=== PATIENT | male | born 1955 | race Caucasian/White ===

== ENCOUNTER 2020-01-08 07:54 | Day surgery (SDC) | payer BC ==
[~2020-01-08 07:54] MED LIST: Acetaminophen TAB* 325 MG PO PRN; Buffered Lidocaine 1% SYRIN* 1 ML/SYRINGE INTRADERM ONE
[2020-01-08] MEDS ORDERED: Midazolam* 1 MG/ML 5 ML VIAL (5 MG) ONE (09:05)
[2020-01-08] MEDS ORDERED: Neomycin/Polymy/Dex OPTH.SUSP* MAXITROL 0.1% 5 ML ONE (09:59)
[2020-01-08] MEDS ORDERED: Povidone Iodine 5% OPTH* 30 ML BTL ONE (09:59)
[2020-01-08] MEDS ORDERED: Cyclopentolate 1% OPTH.SOL* 2 ML BTL ONE (09:59)
[2020-01-08] MEDS ORDERED: Ketorolac 0.5% OPHTH (NF) 0.5 % 5 ML BTL ONE (09:59)
[2020-01-08] MEDS ORDERED: Proparacaine 0.5% OPHTH.SOL* 15 ML BTL ONE (09:59)
[2020-01-08] MEDS ORDERED: Lidocaine 1% MPF ** 5 ML VIAL ONE (09:59)
[2020-01-08] MEDS ORDERED: Phenylephrine OPHTH SOL 2.5%* 2 ML ONE (09:59)
[2020-01-08] MEDS ORDERED: acetaZOLAMIDE TAB* 250 MG ONE (09:59)
[2020-01-08] MEDS ORDERED: Lidocaine 2% w/ EPI 1:200,000* 20 ML SDV VIAL ONE (09:59)
[2020-01-08 10:24] VITALS: BP 117/70
--- NOTE | 2020-01-08 16:51 | OP ---
DATE OF OPERATION: 01/08/2020 [facility] DATE OF : 1955. SURGEON: Jake Lopez M.D. PREOPERATIVE DIAGNOSIS: Cataract right eye. POSTOPERATIVE DIAGNOSIS: Cataract right eye. OPERATIVE PROCEDURE: Extracapsular cataract extraction with intraocular lens implant right eye. DESCRIPTION OF PROCEDURE: The patient was brought to the operating room after being given 1/2% Alcaine with epinephrine drops in the preoperative area. The eye was prepped and draped in the usual sterile fashion. Sterile drape and eyelid speculum were placed. Again, topical 1/2% Alcaine with epinephrine was given. A paracentesis incision was made at the 9 o'clock position with the No.75 blade. Clear cornea incision 2.2 x 2.2-mm was created at the 12 o'clock position starting at the anterior limbus using the 2.2-mm keratome. The anterior chamber was irrigated with 0.4 mL of 1% non-preservative intracameral lidocaine and filled with DisCoVisc. A capsulorrhexis was completed using the cystotome and the Utrata forceps. Hydrodissection was performed with balanced salt solution. The lens nucleus was removed with the Phacoemulsification handpiece without incident. Cortex was removed with the irrigation-aspiration handpiece. The capsular bag was re-inflated using DisCoVisc and an [id number] implant was inserted with the shooter. The irrigation-aspiration handpiece was used to remove all residual DisCoVisc. The eye was refilled with balanced salt solution and the wound checked and found to be watertight. Topical Maxitrol drops were given. Of note, the patient had very dense cataract and had a hyper deep anterior chamber and a descent amount of zonular laxity. [id number]/[facility] #: [id number] [facility]
== END 2020-01-08 10:29 | disposition home or self-care (01) ==
LOC: OREAST 07:54
PROVIDERS: ATTEND Specialist
DX: H25.11 Age-related nuclear cataract, right eye (principal); H33.8 Other retinal detachments; E11.9 Type 2 diabetes mellitus without complications; J45.909 Unspecified asthma, uncomplicated
CPT/HCPCS: A9270-GY; J2250; V2632